=== PATIENT | male | born 1960 | race African-American/Black ===

== ENCOUNTER 2016-10-14 13:41 | Outpatient (CLI) | payer OTHER ==
[2015-11-06 10:35] VITALS: BP 124/76
[2016-10-14 14:23] LABS: eGFR (African) > 60; eGFR (Non-African) > 60
== END 2016-10-14 13:42 ==
LOC: LAB 13:41
PROVIDERS: ATTEND Family Medicine
DX: Z00.00 Encounter for general adult medical examination without abnormal findings (principal)
CPT/HCPCS: 36415; 80053; 80061

== ENCOUNTER 2017-10-03 09:28 | Outpatient (CLI) | payer OTHER ==
[2015-11-06 10:35] VITALS: BP 124/76
[2017-10-03 10:35] LABS: eGFR (African) > 60; eGFR (Non-African) > 60
== END 2017-10-03 09:30 ==
LOC: LAB 09:28
PROVIDERS: ATTEND Family Medicine
DX: Z00.00 Encounter for general adult medical examination without abnormal findings (principal)
CPT/HCPCS: 36415; 80053; 80061

== ENCOUNTER 2017-10-20 10:03 | Outpatient (CLI) | payer OTHER ==
[2015-11-06 10:35] VITALS: BP 124/76
[2017-10-20 10:45] LABS: BASOPHILS % 0.6 (0.0-1.5); EOSINOPHILS % 4.3 % (0.0-6.8); MEAN CORPUSCULAR VOLUME 88.3 fl (80.0-100.0); NEUTROPHILS # 2.5 # k/uL (1.4-7.7)
== END 2017-10-20 10:10 ==
LOC: LAB 10:03
PROVIDERS: ATTEND Family Medicine
DX: R42 Dizziness and giddiness (principal)
CPT/HCPCS: 36415; 85025

== ENCOUNTER 2018-10-11 10:14 | Outpatient (CLI) | payer OTHER ==
[2015-11-06 10:35] VITALS: BP 124/76
[2018-10-11 11:03] LABS: eGFR (Non-African) > 60
== END 2018-10-11 10:16 ==
LOC: LAB 10:14
PROVIDERS: ATTEND Family Medicine
DX: Z00.00 Encounter for general adult medical examination without abnormal findings (principal); Z12.5 Encounter for screening for malignant neoplasm of prostate
CPT/HCPCS: 36415; 80053; 80061; G0103